=== PATIENT | female | born 1950 | race African-American/Black ===

== ENCOUNTER 2016-10-31 08:42 | Emergency (ER) | payer OTHER ==
--- NOTE | 2016-10-31 09:11 | PROVIDER DOCUMENTATION ---
HPI-Abdominal Pain/GI Problem - General Source: patient - History of Present Illness-ABD Nature of Presenting Problems: pt is a 66 y/o F that presents to the ER with left flank pain and dysuria. patient doesn't know when the symptoms began nor how they began, she just reports it hurts. Denies n/v/d, fever/chills. denies injury. Abdominal Pain Onset Location: reports: flank (left) Pain Radiation: reports: no radiation Quality of Pain: reports: sharp Severity in ED: reports: mild Onset/Duration: reports: unsure Timing: reports: still present, constant Activities at Onset: reports: none Modifying Factors: worse with: movement, urinating Associated Symptoms: reports: back/neck pain, genitourinary problems. denies: chest pain, cough, diarrhea, fever/chills, nausea, vomiting Similar Symptoms Previously?: No Recently seen or treated by another doctor?: No <Kal Ferguson - Last Filed: 10/31/16 10:22> <Sathish Dasilva I - Last Filed: 10/31/16 10:30> - General Chief Complaint: Flank Pain Stated Complaint: KIDNEY PAIN/BACK PAIN Time Seen by Provider: 10/31/16 09:08 Allergies/Adverse Reactions: Patient Allergies Allergy/AdvReac Type Severity Reaction Status Date / Time metoclopramide HCl * AdvReac Unknown Verified 10/31/16 09:09 [From [facility]] Home Medications: Home Medication List Medication Instructions Recorded Confirmed Last Taken Type Lisinopril [Zestril] 20 mg PO QAM 02/09/16 10/31/16 10/30/16 History Metformin [Glucophage] 500 mg PO BID CC 02/09/16 10/31/16 10/30/16 History Estrogens, Conjugated [Premarin] 1.25 mg PO DAILY 06/05/16 10/31/16 10/30/16 History Naproxen Sodium [Anaprox Ds] 550 mg PO BID #20 tablet 10/31/16 Unknown Rx Review of Systems - Adult - REVIEW OF SYSTEMS - ADULT Constitutional: denies: chills, fever Eyes: reports: no symptoms reported Ears, Nose, Mouth & Throat: denies: ear pain, sinus problem, throat pain, throat swelling Cardiovascular: denies: chest pain, palpitations, syncope Respiratory: denies: chronic cough, cough, shortness of breath, wheezing Gastrointestinal: reports: abdominal pain. denies: diarrhea, nausea, vomiting Genitourinary: reports: dysuria, flank pain (left). denies: frequency, hematuria, urgency Musculoskeletal: reports: back pain. denies: joint pain, neck pain Integumentary: reports: no symptoms reported Neurological: reports: no symptoms reported Psychiatric: reports: no symptoms reported Endocrine: reports: no symptoms reported Hematologic/Lymphatic: reports: no symptoms reported Allergic/Immunologic: reports: no symptoms reported All Other Systems: Reviewed and Negative <Kal Ferguson - Last Filed: 10/31/16 10:22> Past History - Adult - PAST MEDICAL HISTORY-ADULT Review of Records: reports: Old Records Reviewed, Nursing Assessment Review, Medications Reviewed Cardiovascular: reports: HTN Musculoskeletal: reports: arthritis, chronic pain Psychiatric: reports: anxiety Endocrine/Immune: reports: Diabetes, lupus - PRIOR SURGERIES/PROCEDURES Surgical/Procedure History: reports: BTL - IMMUNIZATION STATUS Childhood Immunizations: See Nurse Assessment Flu Vaccine: See Nurse Assessment - FAMILY HISTORY Family History: reviewed, not pertinent - SOCIAL HISTORY Smoking: non-smoker Living Situation: family <Kal Ferguson - Last Filed: 10/31/16 10:22> Physical Exam-General - PHYSICAL EXAM-ADULT Initial Vital Signs Reviewed: Yes - CONSTITUTIONAL General Appearance: alert, no apparent distress - EYES Eyes: PERRL/EOMI, pink conjunctivae - HEAD, EARS, NOSE, MOUTH & THROAT HENMT: normocephalic/atraumatic, moist mucous membranes, normal ENT inspection - NECK Neck: non-tender, full range of motion, normal inspection - RESPIRATORY Respiratory: lungs clear, normal breath sounds, no respiratory distress, no accessory muscle use - CARDIOVASCULAR Cardiovascular: regular rate, rhythm, no edema, no murmur - GASTROINTESTINAL (ABDOMEN) Abdominal Exam: normal bowel sounds, non tender, soft, no organomegaly, no pulsatile mass - MUSCULOSKELETAL Back Exam: normal inspection, no CVA tenderness, no vertebral tenderness Extremity: normal range of motion, normal inspection, no pedal edema - SKIN Integumentary: normal color, normal turgor, warm/dry - NEUROLOGIC Neurologic: grossly normal, no motor/sensory deficits - PSYCHIATRIC Psych/Mental Status: normal mood/affect, normal thought content, normal thought process, oriented x 3 <Kal Ferguson - Last Filed: 10/31/16 10:22> Progress - PLAN OF CARE/RESULTS Progress/Plan/Lab Results: plan of care-labs Vital Signs Temp Pulse Resp BP Pulse Ox 10/31/16 08:49 98.5 F 77 16 120/85 100 metoclopramide HCl * [From Reglan] Adverse Reaction (Verified 10/31/16 09:09) Unknown Lisinopril [Zestril] 20 mg PO QAM 02/09/16 Metformin [Glucophage] 500 mg PO BID CC 02/09/16 Estrogens, Conjugated [Premarin] 1.25 mg PO DAILY 06/05/16 Dietary Diet NPO Start SunOct 31 924 I&O 10/30/16 10/31/16 11/01/16 06:59 06:59 06:59 Output Total 25 Balance -25 Laboratory 10/31/16 10/31/16 09:55 09:32 WBC 4.46 L RBC 4.66 Hgb 11.4 L Hct 35.3 L MCV 75.8 L MCH 24.5 L MCHC 32.3 L RDW Std Deviation 15.1 H Plt Count 322 MPV 9.7 Immature Gran % (Auto) 0.0 Neut % (Auto) 41.0 L Lymph % (Auto) 45.5 [place] % (Auto) 10.8 H Eos % (Auto) 2.0 Baso % (Auto) 0.7 Immature Gran # (Auto) 0.00 Neut # (Auto) 1.83 Lymph # (Auto) 2.03 [place] # (Auto) 0.48 Eos # (Auto) 0.09 Baso # (Auto) 0.03 Urine Source CLEAN CATCH Urine Color YELLOW Urine Turbidity CLEAR Urine pH 5.5 Ur Specific [place] 1.018 Urine Protein NEGATIVE Ur Glucose (Stick) NEGATIVE Ur Ketones (Stick) NEGATIVE Urine Blood TRACE A Urine Nitrite NEGATIVE Urine Bilirubin NEGATIVE Urobilinogen Dipstick NORMAL Urine Leukocytes NEGATIVE Urine WBC (Auto) <10 Urine RBC (Auto) <10 U Epithel Cells (Auto) <10 Urine Bacteria (Auto) NEGATIVE Orders Category Date Time Status Saline Loc DIRECTED Care 10/31/16 09:25 Active NPO Diet 10/31/16 09:25 Active RENAL STONE SEARCH [CT] Stat Exams 10/31/16 09:25 Taken AMYLASE [CHEM] Stat Lab 10/31/16 09:55 Received CBC WITH ELECTRONIC DIFF [HEME] Stat Lab 10/31/16 09:55 Completed COMPREHENSIVE METABOLIC PANEL [CHEM] Stat Lab 10/31/16 09:55 Received LIPASE [CHEM] Stat Lab 10/31/16 09:55 Received URINALYSIS W/POSS RFLX CULT [URINALYSIS] Stat Lab 10/31/16 09:32 Completed pt will be d/c home f/u with pcp, rx given, pt was clinically stable. - CT/MRI 1 CT Study: Renal Stone Impression: Normal CT Results: nad <Kal Ferguson - Last Filed: 10/31/16 10:22> Departure - Departure Time of Disposition Order: 10:23 Certified Medical Emergency: Emergent <Kal Ferguson - Last Filed: 10/31/16 10:22> - Departure Time of Disposition Order: 10:27 Certified Medical Emergency: Emergent <Sathish Dasilva I - Last Filed: 10/31/16 10:30> - Departure DIAGNOSIS: Muscle strain Back strain Qualifiers: Encounter type: initial encounter Qualified Code(s): S39.012A - Strain of muscle, fascia and tendon of lower back, initial encounter Disposition: HOME 01 Condition: Stable Additional Instructions: ED Follow Up Instructions: You have been treated by a care provider in the Emergency Department. These instructions are being provided to you so you can have an understanding of how to care for yourself upon discharge. Upon discharge from the Emergency Department, you are responsible for making arrangements for follow-up care by a physician of your choice. Take all prescribed medications as directed. Return to the Emergency Department immediately for any new or worsening symptoms. You may call the Physician Referral phone number at [phone] to obtain a list of Physicians who are taking new patients. Prescriptions: Naproxen Sodium [Anaprox Ds] 550 mg PO BID #20 tablet Referrals: None,PCP [Primary Care Provider] - Instructions: Low Back Strain with Rehab-SportsMed Attestation - Scribe Verification/Attestation Scribe:: Kal Ferguson Acting as Scribe for:: Sathish Dasilva Scribe documention review:: This chart was documented by a scribe and accurately reflects the service the provider performed and the decisions made by the provider. <Kal Ferguson - Last Filed: 10/31/16 10:22> Physician Attestation - Physician Attestation I, the provider, attest to the following statement:: Sathish Dasilva Physician documentation Attestation:: This documentation recorded by the scribe accurately reflects the service I personally performed and the decisions made by me. <Kal Ferguson - Last Filed: 10/31/16 10:22> - Physician Attestation I, the provider, attest to the following statement:: Sathish Dasilva Physician documentation Attestation:: This documentation recorded by the scribe accurately reflects the service I personally performed and the decisions made by me. <Sathish Dasilva I - Last Filed: 10/31/16 10:30>
[2016-10-31 09:42] LABS: URINE CULTURE NEEDED? NO; URINE MICRO REVIEW NEEDED? NO; URINE SOURCE CLEAN CATCH
[2016-10-31 09:53] LABS: BILIRUBIN URINE NEGATIVE (NEGATIVE); BLOOD URINE TRACE (NEGATIVE); COLOR YELLOW; GLUCOSE URINE NEGATIVE (NEGATIVE); LEUKOCYTES URINE NEGATIVE (NEGATIVE); NITRITE URINE NEGATIVE (NEGATIVE); PH URINE 5.5; PROTEIN URINE NEGATIVE (NEGATIVE); SP GRAVITY URINE 1.018; TURBIDITY URINE CLEAR (CLEAR); UROBILINOGEN URINE NORMAL (NORMAL)
[2016-10-31 09:54] LABS: UR EPITHELIAL CELLS <10 /HPF (<10); URINE BACTERIA NEGATIVE /HPF; URINE RBC <10 /HPF (<10); URINE WBC <10 /HPF (<10)
[2016-10-31 10:04] LABS: MANUAL DIFF NEEDED? NO
[2016-10-31 10:11] LABS: BASO% 0.7 % (0.0-0.8); EOS# 0.09 X1000 (0.0-0.7); HEMATOCRIT 35.3 % (37.0-47.0); HEMOGLOBIN 11.4 g/dL (12.0-16.0); LYMPH# 2.03 X1000 (1.2-3.4); LYMPH% 45.5 % (20.5-51.1); MCH 24.5 PG (27-31); MCHC 32.3 g/dL (33-37); MCV 75.8 FL (81-99); MONO# 0.48 X1000 (0.11-0.59); MONO% 10.8 % (1.7-9.3); MPV 9.7 FL (7.4-10.4); PLT 322 X1000 (130-400); RBC 4.66 XMIL (4.2-5.4)
[2016-10-31] MEDS ORDERED: TYLENOL PO ONE (10:22)
[2016-10-31 10:28] LABS: AGAP 14; ALBUMIN 3.8 g/dL (3.5-5.0); ALKALINE PHOSPHATASE 77 U/L (32-104); AMYLASE 85 U/L (20-200); BUN 11 mg/dL (8-22); CALCIUM 9.2 mg/dL (8.8-10.2); CHLORIDE 104 mmol/L (98-107); COSMO 281; GOT 14 U/L (10-30); GPT 10 U/L (10-36); LIPASE 59 U/L (13-60); POTASSIUM 3.5 mmol/L (3.5-5.1); SODIUM 142 mmol/L (136-145); TCO2 24 mmol/L (25-35); TOTAL BILIRUBIN 0.33 mg/dL (0.20-1.00); TOTAL PROTEIN 7.2 g/dL (6.3-8.3)
--- NOTE | 2016-10-31 10:35 | Diag Imaging Result Document ---
PROCEDURE NAME: RENAL STONE SEARCH - 10/31/2016 CT ABDOMEN AND PELVIS, 10/31/2016: COMPARISON: 12/17/2015. FINDINGS: Aside from calcified granulomas, the lung bases are clear. There are numerous soft- tissue calcifications in the liver, spleen, and upper abdominal lymph nodes stable from prior. There is a stable large hiatal hernia. No radiodense renal stones. No hydronephrosis or hydroureter. No bowel obstruction or inflammation. Normal appendix. Urinary bladder, uterus, and rectum are normal. Bony structures are intact. IMPRESSION: No acute disease or change from prior. Hiatal hernia. Negative for renal stone disease.
[2016-10-31 10:40] VITALS: BP 141/78
== END 2016-10-31 10:59 | disposition home or self-care (01) ==
LOC: ED 08:42
DX: S39.012A Strain of muscle, fascia and tendon of lower back, initial encounter (principal); K44.9 Diaphragmatic hernia without obstruction or gangrene; R10.9 Unspecified abdominal pain; R30.0 Dysuria; M54.9 Dorsalgia, unspecified; I10 Essential (primary) hypertension; M19.90 Unspecified osteoarthritis, unspecified site; G89.29 Other chronic pain; Z79.899 Other long term (current) drug therapy; E11.9 Type 2 diabetes mellitus without complications; M32.9 Systemic lupus erythematosus, unspecified
CPT/HCPCS: 74176; 80053; 81001; 82150; 83690; 85025

== ENCOUNTER 2016-11-17 07:38 | Emergency (ER) | payer OTHER ==
[2016-11-17 08:10] VITALS: BP 135/84
[2016-11-17 09:15] LABS: MANUAL DIFF NEEDED? NO
[2016-11-17 09:22] LABS: BASO% 0.9 % (0.0-0.8); EOS% 2.2 % (0.0-10.0); HEMATOCRIT 35.7 % (37.0-47.0); HEMOGLOBIN 11.3 g/dL (12.0-16.0); LYMPH# 1.96 X1000 (1.2-3.4); LYMPH% 42.6 % (20.5-51.1); MCH 24.1 PG (27-31); MCHC 31.7 g/dL (33-37); MCV 76.3 FL (81-99); MONO# 0.43 X1000 (0.11-0.59); MONO% 9.3 % (1.7-9.3); MPV 10.6 FL (7.4-10.4); PLT 329 X1000 (130-400); RBC 4.68 XMIL (4.2-5.4)
[2016-11-17] MEDS ORDERED: ZOFRAN ODT PO ONE (09:23)
[2016-11-17] MEDS ORDERED: ULTRAM PO ONE (09:23)
--- NOTE | 2016-11-17 09:24 | PROVIDER DOCUMENTATION ---
HPI-Abdominal Pain/GI Problem - General Chief Complaint: Abdominal Pain Stated Complaint: ABD PAIN Time Seen by Provider: 11/17/16 09:13 Source: patient Allergies/Adverse Reactions: Patient Allergies Allergy/AdvReac Type Severity Reaction Status Date / Time metoclopramide HCl * AdvReac Unknown Verified 11/17/16 08:13 [From [facility]] Home Medications: Home Medication List Medication Instructions Recorded Confirmed Last Taken Type Lisinopril [Zestril] 20 mg PO QAM 02/09/16 10/31/16 10/30/16 History Metformin [Glucophage] 500 mg PO BID CC 02/09/16 10/31/16 10/30/16 History Estrogens, Conjugated [Premarin] 1.25 mg PO DAILY 06/05/16 10/31/16 10/30/16 History Naproxen Sodium [Anaprox Ds] 550 mg PO BID #20 tablet 10/31/16 Unknown Rx Dicyclomine [Bentyl] 10 mg PO TID AC #30 capsule 11/17/16 Unknown Rx Nitrofurantoin Monohyd/M-Cryst 100 mg PO BID #14 capsule 11/17/16 Unknown Rx [Macrobid 100 mg Capsule] - History of Present Illness-ABD Nature of Presenting Problems: 66 y/o AAF c/o "gallbladder needs to come out." States she was dx with gallbladder disease about 30 days ago and the pain hasn't gone away. Pain in the generalized abdomen, lower back and hips. The pain in the back and hips hurts "all the time" and has been present for years. States abdominal pain is generalized, no radiation, sharp, and painful when she just moves her hands over the abdomen. Denies nausea, vomiting or diarrhea. Denies fevers, chills or weight loss.Denies poor appetite. States she could not get surgery 30 days ago, and now she is wanting the gallbaldder out. Abdominal Pain Onset Location: reports: generalized abdomen Pain Radiation: reports: no radiation Quality of Pain: reports: aching Severity in ED: reports: mild Onset/Duration: reports: other (over 30 days) Timing: reports: still present Associated Symptoms: reports: back/neck pain, joint pain, muscle aches. denies : anxiety, arm pain, chest pain, constipation, cough, diaphoresis, diarrhea, dizziness, EENT symptoms, fatigue, fever/chills, genitourinary problems, headaches, heartburn, loss of appetite, malaise, sinus congestion/drainage, nausea, rash, seizure, shortness of breath, sensory/motor loss, pain with inspiration, swelling/mass in abdomen, syncope, vomiting, weakness, trouble walking Review of Systems - Adult - REVIEW OF SYSTEMS - ADULT Constitutional: reports: no symptoms reported. denies: chills, fever, fatique Eyes: reports: no symptoms reported. denies: blurred vision, double vision, eye pain Ears, Nose, Mouth & Throat: reports: no symptoms reported. denies: ear pain, nose pain, throat pain Cardiovascular: reports: no symptoms reported. denies: chest pain, irregular heart rate, palpitations Respiratory: reports: no symptoms reported. denies: cough, shortness of breath , wheezing Gastrointestinal: reports: see HPI, abdominal pain. denies: diarrhea, nausea, vomiting Genitourinary: reports: no symptoms reported. denies: dysuria, discharge, frequency, incontinence Musculoskeletal: reports: see HPI, bone pain, back pain, joint pain, muscle aches Integumentary: reports: no symptoms reported. denies: rash Neurological: reports: no symptoms reported. denies: headache/migraines Psychiatric: reports: no symptoms reported Endocrine: reports: no symptoms reported Hematologic/Lymphatic: reports: no symptoms reported Allergic/Immunologic: reports: no symptoms reported All Other Systems: Reviewed and Negative Past History - Adult - PAST MEDICAL HISTORY-ADULT Review of Records: reports: Old Records Reviewed, Nursing Assessment Review, Medications Reviewed, Social history reviewed & non-contributory. Major Childhood Illnesses: reports: denies history Cardiovascular: reports: HTN, hyperlipidemia Respiratory: reports: denies history Gastrointestinal: reports: denies history Obstetrical/Gynecological: reports: denies history Genitourinary: reports: denies history Musculoskeletal: reports: arthritis, chronic pain Neurological: reports: denies history Psychiatric: reports: anxiety Endocrine/Immune: reports: Diabetes, lupus Diabetes controlled by:: PO Meds Other Conditions: reports: denies history - PRIOR SURGERIES/PROCEDURES Surgical/Procedure History: reports: BTL - IMMUNIZATION STATUS Childhood Immunizations: See Nurse Assessment Flu Vaccine: See Nurse Assessment - FAMILY HISTORY Family History: reviewed, not pertinent - SOCIAL HISTORY Smoking: denies Substance Use: none/never Alcohol Use Frequency: never Living Situation: family Physical Exam-General - PHYSICAL EXAM-ADULT Initial Vital Signs Reviewed: Yes - CONSTITUTIONAL General Appearance: appears well, alert, no apparent distress - EYES Eyes: PERRL/EOMI, pink conjunctivae - HEAD, EARS, NOSE, MOUTH & THROAT HENMT: normocephalic/atraumatic, moist mucous membranes - NECK Neck: non-tender, full range of motion, supple, normal inspection - RESPIRATORY Respiratory: chest non-tender, lungs clear, normal breath sounds, no pleuratic chest pain, no respiratory distress, no accessory muscle use. negative: respiratory distress, decreased breath sounds, accessory muscle use, crackles, rales, rhonchi, wheezing - CARDIOVASCULAR Cardiovascular: normal peripheral pulses, regular rate, rhythm - GASTROINTESTINAL (ABDOMEN) Abdominal Exam: normal bowel sounds, non tender, soft, no organomegaly, no pulsatile mass. negative: abdominal bruit, abnormal bowel sounds, distended, guarding, rigid, rebound, tenderness - MUSCULOSKELETAL Back Exam: normal inspection, no vertebral tenderness Extremity: normal gait Peripheral Pulses: radial (R): 2+, radial (L): 2+, dorsalis-pedis (R): 2+, dorsalis-pedis (L): 2+ - SKIN Integumentary: normal color, normal turgor, warm/dry - NEUROLOGIC Neurologic: grossly normal, no motor/sensory deficits - PSYCHIATRIC Psych/Mental Status: normal mood/affect, normal thought content, normal thought process, oriented x 3 Progress - PLAN OF CARE/RESULTS Progress/Plan/Lab Results: Vital Signs Temp Pulse Resp BP Pulse Ox 11/17/16 08:07 98.1 F 65 18 135/84 100 metoclopramide HCl * [From Reglan] Adverse Reaction (Verified 11/17/16 08:13) Unknown Lisinopril [Zestril] 20 mg PO QAM 02/09/16 Metformin [Glucophage] 500 mg PO BID CC 02/09/16 Estrogens, Conjugated [Premarin] 1.25 mg PO DAILY 06/05/16 Naproxen Sodium [Anaprox Ds] 550 mg PO BID #20 tablet 10/31/16 Dietary Diet NPO Start SunNov 17 0811 Laboratory 11/17/16 11/17/16 11/17/16 08:39 08:15 08:15 WBC 4.60 L RBC 4.68 Hgb 11.3 L Hct 35.7 L MCV 76.3 L MCH 24.1 L MCHC 31.7 L RDW Std Deviation 14.9 H Plt Count 329 MPV 10.6 H Immature Gran % (Auto) 0.0 Neut % (Auto) 45.0 Lymph % (Auto) 42.6 [place] % (Auto) 9.3 Eos % (Auto) 2.2 Baso % (Auto) 0.9 H Immature Gran # (Auto) 0.00 Neut # (Auto) 2.07 Lymph # (Auto) 1.96 [place] # (Auto) 0.43 Eos # (Auto) 0.10 Baso # (Auto) 0.04 Sodium 142 Potassium 3.6 Chloride 105 Carbon Dioxide 24 L Anion Gap 13 BUN 14 Creatinine 1.0 H Estimated GFR/1.73 m2 > 60 BUN/Creatinine Ratio 14 Glucose 73 Calculated Osmolality 282 Calcium 9.2 Total Bilirubin 0.46 AST 14 ALT 10 Alkaline Phosphatase 80 Total Protein 7.4 Albumin 3.9 Globulin 3.5 Albumin/Globulin Ratio 1.1 Amylase 78 Lipase 68 H Urine Source CLEAN CATCH Urine Color YELLOW Urine Turbidity CLEAR Urine pH 6.0 Ur Specific [place] 1.018 Urine Protein NEGATIVE Ur Glucose (Stick) NEGATIVE Ur Ketones (Stick) NEGATIVE Urine Blood NEGATIVE Urine Nitrite NEGATIVE Urine Bilirubin NEGATIVE Urobilinogen Dipstick NORMAL Urine Leukocytes TRACE A Urine WBC (Auto) 10-20 A Urine RBC (Auto) <10 U Epithel Cells (Auto) <10 Urine Bacteria (Auto) NEGATIVE Orders Category Date Time Status NPO Diet 11/17/16 08:11 Active US GB < RUQ (LIMITED) [US] Stat Exams 11/17/16 08:35 Draft AMYLASE [CHEM] Stat Lab 11/17/16 08:15 Completed CBC WITH ELECTRONIC DIFF [HEME] Stat Lab 11/17/16 08:15 Completed COMPREHENSIVE METABOLIC PANEL [CHEM] Stat Lab 11/17/16 08:15 Completed LIPASE [CHEM] Stat Lab 11/17/16 08:15 Completed URINALYSIS W/POSS RFLX CULT [URINALYSIS] Stat Lab 11/17/16 08:39 Completed URINE CULTURE [RM] Routine Lab 11/17/16 10:01 Received Ondansetron Odt [Zofran Odt] Med 11/17/16 09:23 Discontinued 4 mg PO NOW ONE Tramadol [Ultram] Med 03/17/17 09:23 Discontinued 50 mg PO NOW ONE - ULTRASOUND (By Radiology) 1 US Study: Gallbladder Impression: Abnormal (Cholelithiasis. No wall thickening. No ascites per Dr. Jesus, radiology) Departure - Departure Time of Disposition Order: 10:03 DIAGNOSIS: UTI (urinary tract infection) Qualifiers: Urinary tract infection type: acute cystitis Hematuria presence: without hematuria Qualified Code(s): N30.00 - Acute cystitis without hematuria Cholelithiases Qualifiers: Cholelithiasis location: gallbladder Cholecystitis presence: without cholecystitis Biliary obstruction: without biliary obstruction Qualified Code(s) : K80.20 - Calculus of gallbladder without cholecystitis without obstruction Disposition: HOME 01 Certified Medical Emergency: Emergent Condition: Stable Additional Instructions: follow up with Dr. Zhang ED Follow Up Instructions: You have been treated by a care provider in the Emergency Department. These instructions are being provided to you so you can have an understanding of how to care for yourself upon discharge. Upon discharge from the Emergency Department, you are responsible for making arrangements for follow-up care by a physician of your choice. Take all prescribed medications as directed. Return to the Emergency Department immediately for any new or worsening symptoms. You may call the Physician Referral phone number at [phone] to obtain a list of Physicians who are taking new patients. Prescriptions: Dicyclomine [Bentyl] 10 mg PO TID AC #30 capsule Nitrofurantoin Monohyd/M-Cryst [Macrobid 100 mg Capsule] 100 mg PO BID #14 capsule Referrals: None,PCP [Primary Care Provider] - Jesus Zhang MD [STAFF PHYSICIAN] - Attestation - Physician/ JOVANNY Attestation Patient care was provided by Advanced Practice Provider:: Yes Advanced Practice Provider:: Rosalina Wetzel Advanced Practice Provider documentation review:: The Mid-level provider documentation, treatment plan and medical decision making was reviewed by the physician who agrees with all treatment and medical decision making by the [facility].
[2016-11-17 09:30] LABS: URINE MICRO REVIEW NEEDED? NO; URINE SOURCE CLEAN CATCH
[2016-11-17 09:39] LABS: BILIRUBIN URINE NEGATIVE (NEGATIVE); BLOOD URINE NEGATIVE (NEGATIVE); COLOR YELLOW; GLUCOSE URINE NEGATIVE (NEGATIVE); LEUKOCYTES URINE TRACE (NEGATIVE); NITRITE URINE NEGATIVE (NEGATIVE); PROTEIN URINE NEGATIVE (NEGATIVE); SP GRAVITY URINE 1.018; TURBIDITY URINE CLEAR (CLEAR); UR EPITHELIAL CELLS <10 /HPF (<10); URINE BACTERIA NEGATIVE /HPF; URINE CULTURE NEEDED? YES; URINE RBC <10 /HPF (<10); UROBILINOGEN URINE NORMAL (NORMAL)
[2016-11-17 10:01] LABS: AGAP 13; ALBUMIN 3.9 g/dL (3.5-5.0); ALKALINE PHOSPHATASE 80 U/L (32-104); AMYLASE 78 U/L (20-200); BUN 14 mg/dL (8-22); CALCIUM 9.2 mg/dL (8.8-10.2); CHLORIDE 105 mmol/L (98-107); COSMO 282; GOT 14 U/L (10-30); GPT 10 U/L (10-36); LIPASE 68 U/L (13-60); POTASSIUM 3.6 mmol/L (3.5-5.1); SODIUM 142 mmol/L (136-145); TCO2 24 mmol/L (25-35); TOTAL BILIRUBIN 0.46 mg/dL (0.20-1.00); TOTAL PROTEIN 7.4 g/dL (6.3-8.3)
--- NOTE | 2016-11-17 10:01 | Diag Imaging Result Document ---
PROCEDURE NAME: US GB < RUQ (LIMITED) - 11/17/2016 RIGHT UPPER QUADRANT ULTRASOUND: FINDINGS: Normal pancreas. No aneurysmal dilatation to the abdominal aorta. Normal inferior vena cava. No focal or diffuse hepatic abnormality. Normal right kidney. No hydronephrosis. There are multiple calcifications with posterior shadowing within the gallbladder. The gallbladder wall is not thickened. The common bile duct measures 4 mm. No ascites in the right upper quadrant. IMPRESSION: Cholelithiasis. A preliminary report was given at 9:29 a.m..
== END 2016-11-17 10:46 | disposition home or self-care (01) ==
LOC: ED 07:38
DX: N30.00 Acute cystitis without hematuria (principal); K80.20 Calculus of gallbladder without cholecystitis without obstruction; R10.84 Generalized abdominal pain; M54.5 Low back pain; M25.552 Pain in left hip; M25.551 Pain in right hip; M79.1 Myalgia; I10 Essential (primary) hypertension; Z79.899 Other long term (current) drug therapy; E78.5 Hyperlipidemia, unspecified; M19.90 Unspecified osteoarthritis, unspecified site; G89.29 Other chronic pain; E11.9 Type 2 diabetes mellitus without complications; M32.9 Systemic lupus erythematosus, unspecified
CPT/HCPCS: 36415; 76705; 80053; 81001; 82150; 83690; 85025; 87088